=== PATIENT | male | born 1955 | race Two or more races ===

== ENCOUNTER 2024-01-26 20:16 | Inpatient (IN) | payer MEDICARE, MEDICAID ==
[~2024-01-26] VITALS: Ht 190.5 cm; Wt 176.7 kg
[2024-01-26 22:08] LABS: Basophils # (auto) 0 10 ^3/uL (0-0.2); Basophils % (auto) 0.3 % (0.0-2.0); Eosinophils # (auto) 0.3 10 ^3/uL (0-0.8); Eosinophils % (auto) 4.3 % (0.0-7.0); Hematocrit 38.6 % (41.0-53.0); Hemoglobin 13.2 g/dL (13.5-17.5); Mean Corpuscular Hemoglobin 33.6 pg (28.0-32.0); Mean Corpuscular Hgb Conc. 34.3 g/dL (32.0-36.0); Monocytes # (auto) 0.6 10 ^3/uL (0-1.3); Monocytes % (auto) 9.4 % (0.0-12.0); Neutrophils # (auto) 3.6 10 ^3/uL (1.6-8.6); Nucleated Red Blood Cells % 0.1 %; Platelet Count (auto) 145 10^3/uL (140-450); Red Blood Cells 3.94 10^6/uL (4.5-5.90); Red Cell Distribution Width 14.4 % (11.8-14.3); White Blood Cell 6.5 10^3/uL (4.4-10.8)
[2024-01-26 22:30] LABS: Alanine Aminotransferase 20 U/L (7-40); Alkaline Phosphatase 92 U/L (46-116); Anion Gap 8 (5-15); Aspartate Aminotransferase 42 U/L (13-40); BUN/Creatinine Ratio 9.1 (10.0-20.0); Blood Urea Nitrogen 19 mg/dL (9-23); Calcium 9.5 mg/dL (8.7-10.4); Carbon Dioxide 23 mmol/L (20-31); Chloride 109 mmol/L (98-107); Glucose 131 mg/dL (74-106); Potassium 4.1 mmol/L (3.5-5.1); Sodium 140 mmol/L (136-145)
[2024-01-26 22:31] LABS: Bilirubin, Total 0.5 mg/dL (0.2-1.0)
--- NOTE | 2024-01-27 00:38 | DVH ---
CLINICAL HISTORY: abd pain TECHNIQUE: CT of the abdomen and pelvis was performed without intravenous contrast. This exam was per formed according to our departmental dose optimization program. Up-to-date CT equipment and radiation dose reduction techniques are utilized as appropriate. WID: COMPARISON: None FINDINGS: Lower Thorax: Linear bibasilar scarring or atelectasis. Normal-sized heart. 3-vessel calcified coron luís artery disease, up to severe in the left anterior descending artery. Liver and Biliary system: Nodular contour of the liver. The gallbladder is normal caliber. No definit e hepatic lesion. Small portosystemic collateral vessels. No biliary ductal dilatation Spleen: Mild splenomegaly. Adrenal Glands and Kidneys: Normal adrenal glands. There is no left hydronephrosis. Tiny nonobstruct ing left upper pole renal calculus. there is a 6 mm calculus in the distal right ureter causing mild- to-moderate upstream right hydroureteronephrosis. Small bilateral kidneys. Pancreas and Retroperitoneum: Unremarkable. Aorta and Major Vessels: Mild calcified plaque in the aortoiliac vessels. Mild focal ectasia of the i nfrarenal abdominal aorta. There is an IVC filter in place terminating below the level of the renal v eins. The legs of the IVC filter extend beyond the confines of the IVC Bowel, Mesentery and Peritoneal space: The right abdomen is not entirely included in the field of vie w. Normal caliber small and large bowel. There is no free air or loculated fluid collection Pelvis: Moderate distention of the urinary bladder. There is a diverticulum in the anterior dome of t he liver. Mild bladder wall trabeculation. TURP defect in the prostate gland. There is no pelvic lymp hadenopathy. Abdominal wall and Osseous Structures: Moderate fat containing bilateral inguinal hernias. Small fat containing umbilical hernia there is bony demineralization. 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 IMPRESSION: 1. There is a 6 mm calculus in the distal right ureter with [id number] right hydroureteronephro sis . 2. Tiny nonobstructing left upper pole renal calculus . 3. Moderately distended urinary bladder containing diverticulum in the anterior dome and bladder wall trabeculation which could be due to chronic bladder outlet obstruction or neurogenic bladder. Of not e there is a TURP defect in the prostate gland 4. Cirrhosis and portal hypertension with portosystemic collateral vessels and splenomegaly. 5. IVC filter terminating below the level of the renal veins; the legs of the IVC filter extend beyon d the confines of the IVC. 6. 3-vessel calcified coronary artery disease up to severe in the left anterior descending artery.
--- NOTE | 2024-01-27 00:59 | ED.PDOC ---
General HPI Comments 68-year-old male brought in by EMS. Patient brought in from skilled facility. Patient complaining of dysuria and strong odor in his urine for the last two days. States he had been having worsening back pain today. Reports a history of urinary tract infections. Chief Complaint: Urinary Time Seen by MD: 21:17 Reviewed notes: Nurses Notes Allergies: Coded Allergies: Iodine (Verified Allergy, Unknown, 01/26/24) Information Source: Patient Mode of Arrival: EMS Past Medical History PAST MEDICAL HISTORY: DM, HTN Constitutional: denies: chills, diaphoresis, fatigue, fever, malaise, sweats, weakness, others EENTM: denies: blurred vision, double vision, ear bleeding, ear discharge, ear drainage, ear pain, ear ringing, eye pain, eye redness, hearing loss, mouth pain, mouth swelling, nasal discharge, nose bleeding, nose congestion, nose pain, photophobia, tearing, throat pain, throat swelling, voice changes, others Respiratory: denies: cough, hemoptysis, orthopnea, SOB at rest, shortness of breath, SOB with excertion, stridor, wheezing, others Cardiovascular: denies: chest pain, dizzy spells, diaphoresis, Dyspnea on exertion, edema, irregular heart beat, left arm pain, lightheadedness, palpitations, PND, syncope, others Gastrointestinal: denies: abdomen distended, abdominal pain, blood streaked bowels, constipated, diarrhea, dysphagia, difficulty swallowing, hematemesis, melena, nausea, poor appetite, poor fluid intake, rectal bleeding, rectal pain, vomiting, others Genitourinary: reports: dysuria, flank pain; denies: burning, frequency, hematuria, incontinence, penile discharge, penile sore, pain, testicle pain, testicle swelling, urgency, others Neurological: denies: dizziness, fainting, headache, left sided numbness, left sided weakness, numbness, paresthesia, pre-existing deficit, right sided numbness, right sided weakness, seizure, speech problems, tingling, tremors, weakness, others Musculoskeletal: denies: back pain, gout, joint pain, joint swelling, muscle pain, muscle stiffness, neck pain, others Integumetry: denies: bruises, change in color, change in hair/nails, dryness, laceration, lesions, lumps, rash, wounds, others Allergic/Immunocompromised: denies: Difficulty Healing, Frequent Infections, Hives, Itching, others Physical Exam General Appearance: Mild Distress, Normal HEENT: Normal ENT Inspection, Pharynx Normal, TMs Normal Neck: Full Range of Motion, Non-Tender, Normal, Normal Inspection Respiratory: Chest Non-Tender, Lungs Clear, No Accessory Muscle Use, No Respiratory Distress, Normal Breath Sounds Cardiovascular: No Edema, No JVD, No Murmur, No Gallop, Normal Peripheral Pulses, Regular Rate/Rhythm Breast Exam: Deferred Gastrointestinal: No Organomegaly, Non Tender, No Pulsatile Mass, Normal Bowel Sounds, Soft Genitalia: Deferred Pelvic: Deferred Rectal: Deferred Extremities: No calf tenderness, Normal capillary refill, No pedal edema Musculoskeletal : Apperance: Normal Neurologic: Alert, administration vice president II-XII nml as Tested, No Motor Deficits, Normal Affect, Normal Mood, No Sensory Deficits Cerebellar Function: Normal Reflexes: Normal Skin: Dry, Normal Color, Warm Lymphatic: No Adenopathy Was a procedure done? Was a procedure done?: No Differential Diagnosis Kidney stone (Female): N/A Kidney stone (Male): Pancreatitis, Pyelonephritis, Renal failure, Strain, Urinary obstruction, Urinary tract infection X-Ray, Labs, Meds, VS Vital Signs Date Time Temp Pulse Resp B/P (MAP) Pulse Ox O2 Delivery O2 Flow Rate FiO2 01/26/24 20:41 97.2 78 20 120/72 (88) 93 Lab Test 01/26/24 22:00 Range/Units White Blood Count 6.5 4.4-10.8 10^3/uL Red Blood Count 3.94 L 4.5-5.90 10^6/uL Hemoglobin 13.2 L 13.5-17.5 g/dL Hematocrit 38.6 L 41.0-53.0 % Mean Corpuscular Volume 98.0 80.0-100.0 fL Mean Corpuscular Hemoglobin 33.6 H 28.0-32.0 pg Mean Corpuscular Hemoglobin Concent 34.3 32.0-36.0 g/dL Red Cell Distribution Width 14.4 H 11.8-14.3 % Platelet Count 145 140-450 10^3/uL Mean Platelet Volume 7.4 6.9-10.8 fL Neutrophils (%) (Auto) 56.0 37.0-80.0 % Lymphocytes (%) (Auto) 30.0 10.0-50.0 % Monocytes (%) (Auto) 9.4 0.0-12.0 % Eosinophils (%) (Auto) 4.3 0.0-7.0 % Basophils (%) (Auto) 0.3 0.0-2.0 % Neutrophils # (Auto) 3.6 1.6-8.6 10 ^3/uL Lymphocytes # (Auto) 2.0 0.4-5.4 10 ^3/uL Monocytes # (Auto) 0.6 0-1.3 10 ^3/uL Eosinophils # (Auto) 0.3 0-0.8 10 ^3/uL Basophils # (Auto) 0 0-0.2 10 ^3/uL Nucleated Red Blood Cells 0.1 % Sodium Level 140 136-145 mmol/L Potassium Level 4.1 3.5-5.1 mmol/L Chloride Level 109 H 98-107 mmol/L Carbon Dioxide Level 23 20-31 mmol/L Anion Gap 8 5-15 Blood Urea Nitrogen 19 9-23 mg/dL Creatinine 2.08 H 0.700-1.30 mg/dL Glomerular Filtration Rate Calc 34 >90 mL/min BUN/Creatinine Ratio 9.1 L 10.0-20.0 Serum Glucose 131 H 74-106 mg/dL Lactic Acid Level 1.7 0.4-2.0 mmol/L Calcium Level 9.5 8.7-10.4 mg/dL Total Bilirubin 0.5 0.2-1.0 mg/dL Aspartate Amino Transferase (AST) 42 H 13-40 U/L Alanine Aminotransferase (ALT) 20 7-40 U/L Alkaline Phosphatase 92 46-116 U/L Total Protein 8.0 5.7-8.2 g/dL Albumin 4.0 3.2-4.8 g/dL X-Ray, Labs, Meds, VS Comment Patient to be admitted for urinary tract infection, renal calculi with hydronephrosis Patient will be started on Rocephin IV Ramos catheter to be placed Time of 1ST Reevaluation: 00:58 Reevaluation 1ST: Unchanged Patient Education/Counseling: Diagnosis, Treatment Family Education/Counseling: Diagnosis, Treatment Departure 1 Departure Time of Disposition: 00:57 Impression: Primary Impression: Hydroureteronephrosis Additional Impressions: Kidney stone Urinary tract infection Qualified Codes: N30.00 - Acute cystitis without hematuria Disposition: ADMITTED INPATIENT Condition: Fair Discharged With: Self Critical Care Note Critical Care Time?: No Stability Stability form required: No Heart Score Heart Score: Heart Score Response (Comments) Value History N/A 0 EKG N/A 0 Age N/A 0 Risk Factors N/A 0 Troponin N/A 0 Total 0 SHARRON MCCLELLAND Jan 27, 2024 00:59
[2024-01-27] MEDS ORDERED: ONDANSETRON HCL 4 MG/2 ML VIAL IV PRN (04:15)
--- NOTE | 2024-01-27 06:21 | DVHHP2 ---
History of Present Illness Reason for Visit: Urinary complaints History of Present Illness 68-year-old male presents from a senior care facility for evaluation of urinary complaints. Patient has been complaining of strong order from the urine and dysuria for the past three days. Occasional chills. No fever. No abdominal pain. No other acute complaints. Past Medical History Hypertension diabetes mellitus Past Surgical History None Family History Noncontributory Smoke: No ALCOHOL: none Drugs: None Lives: [facility] Review of Systems Review of Systems Review of systems are currently negative otherwise addressed in HPI. Allergies: Coded Allergies: Iodine (Verified Allergy, Unknown, 01/26/24) Medications Current Medications Medications Dose Ordered Sig/Garrett Route Start Time Stop Time Status Last Admin Dose Admin Metoprolol Tartrate 25 mg BID PO 01/27/24 10:00 Furosemide 40 mg DAILY PO 01/27/24 10:00 Atorvastatin Calcium 40 mg HS PO 01/27/24 22:00 Tamsulosin HCl 0.4 mg QPM PO 01/27/24 18:00 Warfarin Sodium RX PROTOCOL PER PHARMACY PO 01/27/24 04:15 UNV Quetiapine Fumarate 25 mg BID PO 01/27/24 10:00 Acetaminophen/ Hydrocodone Bitart 1 tab Q4HP PRN PO 01/27/24 04:15 Ondansetron HCl 4 mg Q4HP PRN IV 01/27/24 04:15 Acetaminophen 650 mg Q6HP PRN PO 01/27/24 04:15 Exam Vital Signs Vital Signs Date Time Temp Pulse Resp B/P (MAP) Pulse Ox O2 Delivery O2 Flow Rate FiO2 01/26/24 20:41 97.2 78 20 120/72 (88) 93 Exam Gen: 68-year-old male in mild distress, morbidly obese Skin: Warm, dry, normal color and texture, no rash. HEENT: Normocephalic atraumatic, mucous membranes moist and pink. Neck: Cervical and supraclavicular nodes normal without enlargement, trachea is midline, thyroid gland is normal without masses. Pulmonary: Clear to auscultation and percussion bilaterally. Cardiac: Regular rate and rhythm. No murmur Abdomen: Soft, nontender, nondistended, bowel sounds present all 4 quadrants, no guarding, no rigidity, no organomegaly. Extremities: No cyanosis, clubbing, no edema Neuro: Cranial nerves II through XII grossly intact, normal affect and speech, no focal motor deficits. Labs/Xrays ORDERING PHYSICIAN: SHARRON MCCLELLAND PROCEDURE(s): ABPL - CT AB PEL WO CON-NO ORAL OR IV REASON: abd pain ORDER NUMBER(s): [id number], ACCESSION NUMBER(s): [id number] CLINICAL HISTORY: abd pain TECHNIQUE: CT of the abdomen and pelvis was performed without intravenous contrast. This exam was performed according to our departmental dose optimization program. Up-to-date CT equipment and radiation dose reduction techniques are utilized as appropriate. WID: COMPARISON: None FINDINGS: Lower Thorax: Linear bibasilar scarring or atelectasis. Normal-sized heart. 3-vessel calcified coronary artery disease, up to severe in the left anterior descending artery. Liver and Biliary system: Nodular contour of the liver. The gallbladder is normal caliber. No definite hepatic lesion. Small portosystemic collateral vessels. No biliary ductal dilatation Spleen: Mild splenomegaly. Adrenal Glands and Kidneys: Normal adrenal glands. There is no left hydron ephrosis. Tiny nonobstructing left upper pole renal calculus. there is a 6 mm calculus in the distal right ureter causing [id number] upstream right hydroureteronephrosis. Small bilateral kidneys. Pancreas and Retroperitoneum: Unremarkable. Aorta and Major Vessels: Mild calcified plaque in the aortoiliac vessels. Mild focal ectasia of the infrarenal abdominal aorta. There is an IVC filter in place terminating below the level of the renal veins. The legs of the IVC filter extend beyond the confines of the IVC Bowel, Mesentery and Peritoneal space: The right abdomen is not entirely included in the field of view. Normal caliber small and large bowel. There is no free air or loculated fluid collection Pelvis: Moderate distention of the urinary bladder. There is a diverticulum in the anterior dome of the liver. Mild bladder wall trabeculation. TURP defect in the prostate gland. There is no pelvic lymphadenopathy. Abdominal wall and Osseous Structures: Moderate fat containing bilateral inguinal hernias. Small fat containing umbilical hernia there is bony demineralization. 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 IMPRESSION: 1. There is a 6 mm calculus in the distal right ureter with [id number] right hydroureteronephrosis . 2. Tiny nonobstructing left upper pole renal calculus . 3. Moderately distended urinary bladder containing diverticulum in the anterior dome and bladder wall trabeculation which could be due to chronic bladder outlet obstruction or neurogenic bladder. Of note there is a TURP defect in the prostate gland 4. Cirrhosis and portal hypertension with portosystemic collateral vessels and splenomegaly. 5. IVC filter terminating below the level of the renal veins; the legs of the IVC filter extend beyond the confines of the IVC. 6. 3-vessel calcified coronary artery disease up to severe in the left anterior descending artery. ATED BY: MOHAN KOO MD Labs Test 01/26/24 22:00 Range/Units White Blood Count 6.5 4.4-10.8 10^3/uL Red Blood Count 3.94 L 4.5-5.90 10^6/uL Hemoglobin 13.2 L 13.5-17.5 g/dL Hematocrit 38.6 L 41.0-53.0 % Mean Corpuscular Volume 98.0 80.0-100.0 fL Mean Corpuscular Hemoglobin 33.6 H 28.0-32.0 pg Mean Corpuscular Hemoglobin Concent 34.3 32.0-36.0 g/dL Red Cell Distribution Width 14.4 H 11.8-14.3 % Platelet Count 145 140-450 10^3/uL Mean Platelet Volume 7.4 6.9-10.8 fL Neutrophils (%) (Auto) 56.0 37.0-80.0 % Lymphocytes (%) (Auto) 30.0 10.0-50.0 % Monocytes (%) (Auto) 9.4 0.0-12.0 % Eosinophils (%) (Auto) 4.3 0.0-7.0 % Basophils (%) (Auto) 0.3 0.0-2.0 % Neutrophils # (Auto) 3.6 1.6-8.6 10 ^3/uL Lymphocytes # (Auto) 2.0 0.4-5.4 10 ^3/uL Monocytes # (Auto) 0.6 0-1.3 10 ^3/uL Eosinophils # (Auto) 0.3 0-0.8 10 ^3/uL Basophils # (Auto) 0 0-0.2 10 ^3/uL Nucleated Red Blood Cells 0.1 % Sodium Level 140 136-145 mmol/L Potassium Level 4.1 3.5-5.1 mmol/L Chloride Level 109 H 98-107 mmol/L Carbon Dioxide Level 23 20-31 mmol/L Anion Gap 8 5-15 Blood Urea Nitrogen 19 9-23 mg/dL Creatinine 2.08 H 0.700-1.30 mg/dL Glomerular Filtration Rate Calc 34 >90 mL/min BUN/Creatinine Ratio 9.1 L 10.0-20.0 Serum Glucose 131 H 74-106 mg/dL Lactic Acid Level 1.7 0.4-2.0 mmol/L Calcium Level 9.5 8.7-10.4 mg/dL Total Bilirubin 0.5 0.2-1.0 mg/dL Aspartate Amino Transferase (AST) 42 H 13-40 U/L Alanine Aminotransferase (ALT) 20 7-40 U/L Alkaline Phosphatase 92 46-116 U/L Total Protein 8.0 5.7-8.2 g/dL Albumin 4.0 3.2-4.8 g/dL Assessment/Plan Assessment/Plan Assessment Obstructive uropathy Right hydroureter nephrosis Urinary retention Diabetes mellitus Hypertension Possible UTI Acute kidney injury Secondary coagulopathy Plan Admit the patient to [facility] to the hospitalist Urology consultation Tyorne ZUNIGA pending Resume home medications Continue treatment per orders. Plan discussed with: Patient My Orders Orders - MARGRET GARCIA AGACNBethany Procedure Category Date Status Time * Urology Consult CONS 01/27/24 Transmitted 04:01 Metoprolol Tartrate PHA 01/27/24 In Process Tablet (Lopressor Ta 10:00 Furosemide Tablet PHA 01/27/24 In Process (Lasix Tablet) 10:00 Atorvastatin (Lipitor) PHA 01/27/24 In Process 22:00 Tamsulosin PHA 01/27/24 In Process Hydrochloride (Flomax) 18:00 Warfarin Per Rx PHA 01/27/24 Pending Protocol (Coumadin 04:15 Quetiapine Fumarate PHA 01/27/24 In Process Tablet (Seroquel Tab 10:00 Basic Metabolic Panel LAB 01/28/24 Verified 04:00 Admit ADMIT 01/27/24 Transmitted 04:01 Hydrocodone-Acet PHA 01/27/24 In Process 5/325mg Tab ([place] 04:15 Ondansetron Hcl PHA 01/27/24 In Process (Zofran) 04:15 Complete Blood Count LAB 01/28/24 Verified 04:00 Cardiac DIET 01/27/24 Transmitted Diet-2gna,Lofat,Lochol Breakfast Condition: Stable ANA 01/27/24 In Process 04:01 Acetaminophen Tablet PHA 01/27/24 In Process (Tylenol Tablet) 04:15 Bedrest With Bathroom ANA 01/27/24 In Process Privileg 04:01 PTPTT LAB 01/27/24 Transmitted 06:18 Ceftriaxone Ivpb PHA 01/27/24 Verified Rocephin 09:00 Date of Service: Jan 27, 2024 Billing Provider: MARGRET GARCIA Common Visit Codes: [id number] INP/OBS CARE (HIGH) MARGRET GARCIA Jan 27, 2024 06:21
[2024-01-27] MEDS: cefTRIAXone 1GM/50ML D5W 50 ML IV ONE (07:00)
[2024-01-27 07:08] LABS: INR 1.12 (0.9-1.15); Partial Thromboplastin Time 29.6 SEC (24.5-34.5); Prothrombin Time 11.8 sec (9.3-11.8)
[2024-01-27 07:30] VITALS: PULSE 75; RESP 20; O2SAT 96
[2024-01-27] MEDS: HYDROcodone-ACET 5/325MG TAB PO PRN (09:06)
[2024-01-27] MEDS: cefTRIAXone 1GM/50ML D5W 50 ML IV SCH (09:11)
[2024-01-27] MEDS: LIDOCAINE 2% JELLY 11ml (GLYDO) UR ONE (10:00)
[2024-01-27] MEDS: QUEtiapine FUMARATE 25 MG TAB PO SCH (10:41)
[2024-01-27] MEDS: METOPROLOL TARTRATE 25 MG TAB PO SCH (10:41)
[2024-01-27] MEDS: FUROSEMIDE 40 MG TAB PO SCH (10:41)
[2024-01-27 12:00] VITALS: PULSE 85; RESP 19; O2SAT 93
--- NOTE | 2024-01-27 13:21 | DVHPN2 ---
Reviewed: Care Plan, H&P, Labs, Medications, Previous Orders, Radiology Changes from previous H/P or p: No Changes Objective Vitals Vital Signs Date Time Temp Pulse Resp B/P (MAP) Pulse Ox O2 Delivery O2 Flow Rate FiO2 01/27/24 11:00 98.1 79 18 110/60 (77) 96 98.1 01/27/24 07:30 Room Air* 0 21 Medications Current Medications Medications Dose Ordered Sig/Garrett Route Start Time Stop Time Status Last Admin Dose Admin Metoprolol Tartrate 25 mg BID PO 01/27/24 10:00 01/27/24 10:41 25 MG Furosemide 40 mg DAILY PO 01/27/24 10:00 01/27/24 10:41 40 MG Atorvastatin Calcium 40 mg HS PO 01/27/24 22:00 Tamsulosin HCl 0.4 mg QPM PO 01/27/24 18:00 Warfarin Sodium RX PROTOCOL PER PHARMACY PO 01/27/24 04:15 Quetiapine Fumarate 25 mg BID PO 01/27/24 10:00 01/27/24 10:41 25 MG Acetaminophen/ Hydrocodone Bitart 1 tab Q4HP PRN PO 01/27/24 04:15 01/27/24 09:06 1 TAB Ondansetron HCl 4 mg Q4HP PRN IV 01/27/24 04:15 Acetaminophen 650 mg Q6HP PRN PO 01/27/24 04:15 Ceftriaxone Sodium 50 ml @ 100 mls/hr DAILY@09 IV 01/27/24 09:00 01/27/24 09:11 100 MLS/HR Laboratory Results Laboratory Tests 01/26/24 22:00 Chemistry Test 01/26/24 22:00 Albumin 4.0 g/dL (3.2-4.8) Calcium Level 9.5 mg/dL (8.7-10.4) Total Protein 8.0 g/dL (5.7-8.2) Coagulation Test 01/27/24 06:35 Prothrombin Time 11.8 sec (9.3-11.8) Prothrombin Time INR 1.12 (0.9-1.15) Activated Partial Thromboplast Time 29.6 SEC (24.5-34.5) LFT Test 01/26/24 22:00 Alanine Aminotransferase (ALT) 20 U/L (7-40) Alkaline Phosphatase 92 U/L (46-116) Aspartate Amino Transferase (AST) 42 U/L (13-40) H Total Bilirubin 0.5 mg/dL (0.2-1.0) Labs and/or images reviewed: Labs reviewed by me, Image(s) reviewed by me Assessment/Plan Assessment/Plan Acute right flank pain 6 mm distal ureteral stone: Consult for Urology Hypertension Diabetes Cirrhosis of liver History of IVC filter [facility] Plan discussed with: Patient Date of Service: Jan 27, 2024 Billing Provider: TONEY GARDNER MD Common Visit Codes: [id number] INP/OBS CARE(HIGH) TONEY GARDNER MD Jan 27, 2024 13:20
[2024-01-27 16:45] LABS: Urine Bacteria FEW /hpf (None Seen); Urine Blood Negative /uL (Negative); Urine Clarity Clear (Clear); Urine Color Yellow (Yellow); Urine Mucus FEW (None Seen); Urine Protein, UAD 3+ (Negative); Urine Specific Gravity 1.019 (1.001-1.035); Urine Urobilinogen Normal (Negative); Urine WBC 1 /hpf (0 - 3)
--- NOTE | 2024-01-27 16:59 | DVHINCON2 ---
Allergies: Coded Allergies: Iodine (Verified Allergy, Unknown, 01/26/24) Current Medications Current Medications Medications (Trade) Dose Ordered Sig/Garrett Route PRN Reason Start Time Stop Time Status Last Admin Metoprolol Tartrate (Lopressor Tablet) 25 mg BID PO 01/27/24 10:00 01/27/24 10:41 Furosemide (Lasix Tablet) 40 mg DAILY PO 01/27/24 10:00 01/27/24 10:41 Atorvastatin Calcium (Lipitor) 40 mg HS PO 01/27/24 22:00 Tamsulosin HCl (Flomax) 0.4 mg QPM PO 01/27/24 18:00 Warfarin Sodium (Coumadin Per Rx Protocol) RX PROTOCOL PER PHARMACY PO 01/27/24 04:15 Quetiapine Fumarate (SEROquel TABLET) 25 mg BID PO 01/27/24 10:00 01/27/24 10:41 Acetaminophen/ Hydrocodone Bitart ([place] 5/325MG Tab) 1 tab Q4HP PRN PO MODERATE PAIN (4-6 PAIN SCALE) 01/27/24 04:15 01/27/24 09:06 Ondansetron HCl (Zofran) 4 mg Q4HP PRN IV NAUSEA / VOMITING 01/27/24 04:15 Acetaminophen (Tylenol Tablet) 650 mg Q6HP PRN PO PAIN SCALE 1-3 OR TEMP>100.4 01/27/24 04:15 Ceftriaxone Sodium 50 ml @ 100 mls/hr DAILY@09 IV 01/27/24 09:00 01/27/24 09:11 Vital Signs Vital Signs Date Time Temp Pulse Resp B/P (MAP) Pulse Ox O2 Delivery O2 Flow Rate FiO2 01/27/24 13:15 98.2 80 110/76 (87) 98.2 01/27/24 13:00 21 95 01/27/24 12:00 Room Air* 0 21 Labs/Diagnostic Data Labs Test 01/27/24 16:12 01/27/24 06:35 01/26/24 22:00 Range/Units Urine Color Yellow Yellow Urine Clarity Clear Clear Urine pH 6.0 5.0-9.0 Urine Specific [place] 1.019 1.001-1.035 Urine Protein 3+ H Negative Urine Ketones Negative Negative Urine Blood Negative Negative /uL Urine Nitrite Negative Negative Urine Bilirubin Negative Negative Urine Urobilinogen Normal Negative mg/dL Urine Leukocyte Esterase Negative Negative /uL Urine RBC 2 0 - 3 /hpf Urine WBC 1 0 - 3 /hpf Urine Squamous Epithelial Cells Few <5 /hpf Urine Bacteria Few H None Seen /hpf Urine Mucus Few None Seen Urine Glucose 2+ H Normal mg/dL Prothrombin Time 11.8 9.3-11.8 sec Prothrombin Time INR 1.12 0.9-1.15 Activated Partial Thromboplast Time 29.6 24.5-34.5 SEC White Blood Count 6.5 4.4-10.8 10^3/uL Red Blood Count 3.94 L 4.5-5.90 10^6/uL Hemoglobin 13.2 L 13.5-17.5 g/dL Hematocrit 38.6 L 41.0-53.0 % Mean Corpuscular Volume 98.0 80.0-100.0 fL Mean Corpuscular Hemoglobin 33.6 H 28.0-32.0 pg Mean Corpuscular Hemoglobin Concent 34.3 32.0-36.0 g/dL Red Cell Distribution Width 14.4 H 11.8-14.3 % Platelet Count 145 140-450 10^3/uL Mean Platelet Volume 7.4 6.9-10.8 fL Neutrophils (%) (Auto) 56.0 37.0-80.0 % Lymphocytes (%) (Auto) 30.0 10.0-50.0 % Monocytes (%) (Auto) 9.4 0.0-12.0 % Eosinophils (%) (Auto) 4.3 0.0-7.0 % Basophils (%) (Auto) 0.3 0.0-2.0 % Neutrophils # (Auto) 3.6 1.6-8.6 10 ^3/uL Lymphocytes # (Auto) 2.0 0.4-5.4 10 ^3/uL Monocytes # (Auto) 0.6 0-1.3 10 ^3/uL Eosinophils # (Auto) 0.3 0-0.8 10 ^3/uL Basophils # (Auto) 0 0-0.2 10 ^3/uL Nucleated Red Blood Cells 0.1 % Sodium Level 140 136-145 mmol/L Potassium Level 4.1 3.5-5.1 mmol/L Chloride Level 109 H 98-107 mmol/L Carbon Dioxide Level 23 20-31 mmol/L Anion Gap 8 5-15 Blood Urea Nitrogen 19 9-23 mg/dL Creatinine 2.08 H 0.700-1.30 mg/dL Glomerular Filtration Rate Calc 34 >90 mL/min BUN/Creatinine Ratio 9.1 L 10.0-20.0 Serum Glucose 131 H 74-106 mg/dL Lactic Acid Level 1.7 0.4-2.0 mmol/L Calcium Level 9.5 8.7-10.4 mg/dL Total Bilirubin 0.5 0.2-1.0 mg/dL Aspartate Amino Transferase (AST) 42 H 13-40 U/L Alanine Aminotransferase (ALT) 20 7-40 U/L Alkaline Phosphatase 92 46-116 U/L Total Protein 8.0 5.7-8.2 g/dL Albumin 4.0 3.2-4.8 g/dL PATIENT: EVELINE LOUISE ACCT: [id number] UNIT: [id number] : 1955 LOC: ER ROOM / BED: / AGE / SEX: 68 / M ADM STATUS: REG ER SERVICE 30 ORDERING PHYSICIAN: SHARRON MCCLELLAND PROCEDURE(s): ABPL - CT AB PEL WO CON-NO ORAL OR IV REASON: abd pain ORDER NUMBER(s): [id number], ACCESSION NUMBER(s): [id number] CLINICAL HISTORY: abd pain TECHNIQUE: CT of the abdomen and pelvis was performed without intravenous contrast. This exam was performed according to our departmental dose optimization program. Up-to-date CT equipment and radiation dose reduction techniques are utilized as appropriate. WID: COMPARISON: None FINDINGS: Lower Thorax: Linear bibasilar scarring or atelectasis. Normal-sized heart. 3- vessel calcified coronary artery disease, up to severe in the left anterior descending artery. Liver and Biliary system: Nodular contour of the liver. The gallbladder is normal caliber. No definite hepatic lesion. Small portosystemic collateral vessels. No biliary ductal dilatation Spleen: Mild splenomegaly. Adrenal Glands and Kidneys: Normal adrenal glands. There is no left hydronephrosis. Tiny nonobstructing left upper pole renal calculus. there is a 6 mm calculus in the distal right ureter causing [id number] upstream right hydroureteronephrosis. Small bilateral kidneys. Pancreas and Retroperitoneum: Unremarkable. Aorta and Major Vessels: Mild calcified plaque in the aortoiliac vessels. Mild focal ectasia of the infrarenal abdominal aorta. There is an IVC filter in place terminating below the level of the renal veins. The legs of the IVC filter extend beyond the confines of the IVC Bowel, Mesentery and Peritoneal space: The right abdomen is not entirely included in the field of view. Normal caliber small and large bowel. There is no free air or loculated fluid collection Pelvis: Moderate distention of the urinary bladder. There is a diverticulum in the anterior dome of the liver. Mild bladder wall trabeculation. TURP defect in the prostate gland. There is no pelvic lymphadenopathy. Abdominal wall and Osseous Structures: Moderate fat containing bilateral inguinal hernias. Small fat containing umbilical hernia there is bony demineralization. 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 IMPRESSION: 1. There is a 6 mm calculus in the distal right ureter with [id number] right hydroureteronephrosis . 2. Tiny nonobstructing left upper pole renal calculus . 3. Moderately distended urinary bladder containing diverticulum in the anterior dome and bladder wall trabeculation which could be due to chronic bladder outlet obstruction or neurogenic bladder. Of note there is a TURP defect in the prostate gland 4. Cirrhosis and portal hypertension with portosystemic collateral vessels and splenomegaly. 5. IVC filter terminating below the level of the renal veins; the legs of the IVC filter extend beyond the confines of the IVC. 6. 3-vessel calcified coronary artery disease up to severe in the left anterior descending artery. ATED BY: MOHAN KOO MD DICTATED DATE/TIME: 01/27/2435 SIGNED BY: MOHAN KOO MD SIGNED DATE/TIME: 01/27/2435 CC: Assessment 6 mm obstructing right distal ureteral calculus with moderate right hydronephrosis Urinary retention Plan/Recommendation Ramos catheter to gravity drainage Right percutaneous nephrostomy tube placement per Interventional Radiology Hold Coumadin INR is still normal ALLYN GRIDER MD Jan 27, 2024 16:59
[2024-01-27] MEDS ORDERED: WARFARIN SODIUM 5 MG TAB PO ONE (17:00)
[2024-01-27] MEDS: MANNITOL FTV 25% 12.5 GM/50 ML 50 ML IV ONE (17:55)
[2024-01-27 19:37] LABS: INR 1.14 (0.9-1.15)
[2024-01-27 20:00] VITALS: PULSE 93; RESP 11; O2SAT 97
[2024-01-27] MEDS: TAMSULOSIN HYDROCHLORIDE 0.4 MG CAP PO SCH (21:19)
[2024-01-27] MEDS: ATORVASTATIN 20 MG TAB PO SCH (22:20)
[2024-01-28 00:42] VITALS: PULSE 78; PULSE 82; RESP 20
[2024-01-28 05:00] VITALS: BP 101/61; PULSE 68; RESP 17; TEMP 98.2; O2SAT 99
[2024-01-28 06:35] LABS: Basophils # (auto) 0 10 ^3/uL (0-0.2); Basophils % (auto) 0.1 % (0.0-2.0); Eosinophils # (auto) 0.3 10 ^3/uL (0-0.8); Eosinophils % (auto) 5.6 % (0.0-7.0); Hematocrit 37.6 % (41.0-53.0); Hemoglobin 12.8 g/dL (13.5-17.5); Lymphocytes # (auto) 1.3 10 ^3/uL (0.4-5.4); Lymphocytes % (auto) 23.7 % (10.0-50.0); Mean Corpuscular Hemoglobin 33.2 pg (28.0-32.0); Mean Corpuscular Volume 97.7 fL (80.0-100.0); Monocytes # (auto) 0.5 10 ^3/uL (0-1.3); Monocytes % (auto) 8.5 % (0.0-12.0); Neutrophils # (auto) 3.5 10 ^3/uL (1.6-8.6); Neutrophils % (auto) 62.1 % (37.0-80.0); Nucleated Red Blood Cells % 0.1 %; Platelet Count (auto) 162 10^3/uL (140-450); Red Blood Cells 3.84 10^6/uL (4.5-5.90); Red Cell Distribution Width 14.4 % (11.8-14.3); White Blood Cell 5.6 10^3/uL (4.4-10.8)
[2024-01-28 06:37] LABS: Chloride 104 mmol/L (98-107); Potassium 3.9 mmol/L (3.5-5.1); Sodium 137 mmol/L (136-145)
[2024-01-28 06:38] LABS: Anion Gap 8 (5-15); Calcium 9.5 mg/dL (8.7-10.4); Carbon Dioxide 25 mmol/L (20-31)
[2024-01-28 06:43] LABS: BUN/Creatinine Ratio 10.2 (10.0-20.0); Blood Urea Nitrogen 21 mg/dL (9-23); Glucose 103 mg/dL (74-106)
[2024-01-28 08:49] VITALS: BP 125/83; PULSE 78; RESP 17; TEMP 98.7; O2SAT 93
--- NOTE | 2024-01-28 11:21 | DVHPN2 ---
Reviewed: Care Plan, H&P, Labs, Medications, Previous Orders, Radiology Changes from previous H/P or p: No Changes Objective Vitals Vital Signs Date Time Temp Pulse Resp B/P (MAP) Pulse Ox O2 Delivery O2 Flow Rate FiO2 01/28/24 10:27 125/83 01/28/24 10:21 78 01/28/24 08:49 98.7 17 93 98.7 01/28/24 00:42 Nasal Cannula* 2 28 Intake/Output Intake and Output 01/28/24 07:00 Intake Total 500 ml Output Total 1640 ml Balance -1140 ml Intake Oral 450 ml IV Total 50 ml Output Urine Total 1640 ml # Voids 2 # Bowel Movements 1 Medications Current Medications Medications Dose Ordered Sig/Garrett Route Start Time Stop Time Status Last Admin Dose Admin Metoprolol Tartrate 25 mg BID PO 01/27/24 10:00 01/28/24 10:21 25 MG Furosemide 40 mg DAILY PO 01/27/24 10:00 01/28/24 10:27 40 MG Atorvastatin Calcium 40 mg HS PO 01/27/24 22:00 01/27/24 22:20 40 MG Tamsulosin HCl 0.4 mg QPM PO 01/27/24 18:00 01/27/24 21:19 0.4 MG Quetiapine Fumarate 25 mg BID PO 01/27/24 10:00 01/28/24 10:20 25 MG Acetaminophen/ Hydrocodone Bitart 1 tab Q4HP PRN PO 01/27/24 04:15 01/27/24 09:06 1 TAB Ondansetron HCl 4 mg Q4HP PRN IV 01/27/24 04:15 Acetaminophen 650 mg Q6HP PRN PO 01/27/24 04:15 Ceftriaxone Sodium 50 ml @ 100 mls/hr DAILY@09 IV 01/27/24 09:00 01/28/24 10:15 100 MLS/HR Laboratory Results Laboratory Tests 01/28/24 05:32 Chemistry Test 01/28/24 05:32 Calcium Level 9.5 mg/dL (8.7-10.4) Coagulation Test 01/27/24 17:50 Prothrombin Time 12.0 sec (9.3-11.8) H Prothrombin Time INR 1.14 (0.9-1.15) Urinalysis Test 01/27/24 16:12 Urine Color Yellow (Yellow) Urine Clarity Clear (Clear) Urine pH 6.0 (5.0-9.0) Urine Specific [place] 1.019 (1.001-1.035) Urine Protein 3+ (Negative) H Urine Ketones Negative (Negative) Urine Blood Negative /uL (Negative) Urine Nitrite Negative (Negative) Urine Bilirubin Negative (Negative) Urine Urobilinogen Normal mg/dL (Negative) Urine Leukocyte Esterase Negative /uL (Negative) Urine RBC 2 /hpf (0 - 3) Urine WBC 1 /hpf (0 - 3) Urine Squamous Epithelial Cells Few /hpf (<5) Urine Bacteria Few /hpf (None Seen) H Urine Mucus Few (None Seen) Urine Glucose 2+ mg/dL (Normal) H Labs and/or images reviewed: Labs reviewed by me, Image(s) reviewed by me Assessment/Plan Assessment/Plan Acute right flank pain 6 mm obstructing right distal ureteral stone with moderate right hydronephrosis: Consult for Urology appreciated awaiting right nephrostomy tube placement Hypertension: Metoprolol Hypercholesterolemia: Lipitor BPH: Flomax Charcot foot right foot Decubitus ulcer lateral right ankle present on admission: Wound consult Depression: Seroquel, Prozac Chronic constipation: Lactulose senekot History of coronary artery disease status post stents 2012 Acute on chronic congestive heart failure: Lasix echocardiogram cardiology consult Type 2 Diabetes: insulin sliding scale Possible history of stroke in the past Bed-bound for the last three years Gross obesity BMI of 50 Cirrhosis of liver History of IVC filter Patient came from [facility] assisted living facility Time spent 70 minutes Advanced care planning 20 minutes Patient is full code Plan discussed with: Patient My Orders Orders - TONEY GARDNER MD Procedure Category Date Status Time * Wound Consult CONS 01/28/24 Transmitted * [facility] CONS 01/28/24 Transmitted Consult Date of Service: Jan 28, 2024 Billing Provider: TONEY GARDNER MD Common Visit Codes: [id number] CARE 30-74 MIN TONEY GARDNER MD Jan 28, 2024 11:21
[2024-01-28 13:00] VITALS: BP 108/67; PULSE 60; RESP 17; TEMP 99.1; O2SAT 94
[2024-01-28] MEDS ORDERED: IODIXANOL 320MG/ML 100ML BTL IV ONE (13:10)
[2024-01-28] MEDS ORDERED: ATOR40TA52 PO (15:01)
[2024-01-28] MEDS ORDERED: TAMS0.4C39 PO (15:01)
[2024-01-28] MEDS ORDERED: FAMO-12 PO (15:01)
[2024-01-28] MEDS ORDERED: WARF-113 PO (15:01)
[2024-01-28] MEDS ORDERED: FURO40TA4 PO (15:01)
[2024-01-28] MEDS ORDERED: ASCO500T6 PO (15:01)
[2024-01-28] MEDS ORDERED: QUET1TAB11 PO (15:01)
[2024-01-28] MEDS ORDERED: FOLI-119 PO (15:01)
[2024-01-28] MEDS ORDERED: MET25T PO (15:01)
[2024-01-28] MEDS ORDERED: ASPI81CH74 PO (15:01)
[2024-01-28] MEDS ORDERED: QUET300T24 PO (15:01)
[2024-01-28 16:53] VITALS: BP 60/26; PULSE 86; RESP 17; TEMP 98.3; O2SAT 96
--- NOTE | 2024-01-28 19:03 | DVHINCON2 ---
Date of service: Jan 28, 2024 History of Present Illness 68-year-old male presents [facility] a [facility] for evaluation of urinary complaints. Patient has been complaining of strong order from the urine and dysuria for the past three days. Occasional chills. No fever. No abdominal pain. No other acute complaints. Past Medical History Hypertension diabetes mellitus Past Surgical History None Family History Noncontributory Smoke: No ALCOHOL: none Drugs: None Lives: [facility] Past Medical History reviewed Family History: FH: chronic renal disease G8 FATHER Allergies: Coded Allergies: Iodine (Verified Allergy, Unknown, 01/26/24) Home Meds Reported Medications Warfarin Sodium (Warfarin Sodium) 6 Mg Tab, PO UD, MG 01/28/24 Ascorbic Acid (Gnp Vitamin C W/[place] Hips) 500 Mg Tab, 500 MG PO BID, TAB 01/28/24 Aspirin (Aspirin 81 Low Dose) 81 Mg Chw, 81 MG PO DAILY, TAB.CHEW 01/28/24 Quetiapine Fumerate (QUETIAPINE FUMARATE) 300 Mg Tab, 300 MG PO HS PRN for FOR INSOMNIA, MG 01/28/24 Folic Acid (Folic Acid) 1 Mg Tab, 1 MG PO DAILY, MG 01/28/24 Quetiapine Fumerate (QUETIAPINE FUMARATE) 25 Mg Tab, 25 MG PO BID, TAB 01/28/24 Tamsulosin Hcl (Tamsulosin Hcl) 0.4 Mg Cap, 0.4 MG PO QPM, MG 01/28/24 Famotidine (Famotidine) 20 Mg Tab, 20 MG PO BID, MG 01/28/24 Atorvastatin Calcium (ATORVASTATIN CALCIUM) 40 Mg Tab, 40 MG PO QPM, TAB 01/28/24 Furosemide (Furosemide) 40 Mg Tab, 40 MG PO DAILY 01/28/24 Metoprolol Tartrate (Lopressor) 25 Mg Tb, 25 MG PO Q12HR, TAB 01/28/24 Current Medications Current Medications Medications (Trade) Dose Ordered Sig/Garrett Route PRN Reason Start Time Stop Time Status Last Admin Atorvastatin Calcium (Lipitor) 40 mg HS PO 01/27/24 22:00 01/27/24 22:20 Fluoxetine HCl (PROzac CAPSULE) 40 mg QAM PO 01/29/24 07:00 Sennosides (Senokot Tablet) 8.6 mg HS PO 01/28/24 22:00 Lactulose 30 ml BIDPRN PRN PO FOR CONSTIPATION 01/28/24 11:45 Review of Systems 10 pt ros otherwise negative Vital Signs Vital Signs Date Time Temp Pulse Resp B/P (MAP) Pulse Ox O2 Delivery O2 Flow Rate FiO2 01/28/24 16:53 98.3 86 17 60/26 (37) 96 98.3 01/28/24 08:00 Room Air* 0 21 Physical Exam nad s1 s2 rrr ctab soft nt/nd no edema Labs/Diagnostic Data Labs Test 01/28/24 05:32 01/27/24 17:50 01/27/24 16:12 01/27/24 06:35 Range/Units White Blood Count 5.6 4.4-10.8 10^3/uL Red Blood Count 3.84 L 4.5-5.90 10^6/uL Hemoglobin 12.8 L 13.5-17.5 g/dL Hematocrit 37.6 L 41.0-53.0 % Mean Corpuscular Volume 97.7 80.0-100.0 fL Mean Corpuscular Hemoglobin 33.2 H 28.0-32.0 pg Mean Corpuscular Hemoglobin Concent 34.0 32.0-36.0 g/dL Red Cell Distribution Width 14.4 H 11.8-14.3 % Platelet Count 162 140-450 10^3/uL Mean Platelet Volume 7.6 6.9-10.8 fL Neutrophils (%) (Auto) 62.1 37.0-80.0 % Lymphocytes (%) (Auto) 23.7 10.0-50.0 % Monocytes (%) (Auto) 8.5 0.0-12.0 % Eosinophils (%) (Auto) 5.6 0.0-7.0 % Basophils (%) (Auto) 0.1 0.0-2.0 % Neutrophils # (Auto) 3.5 1.6-8.6 10 ^3/uL Lymphocytes # (Auto) 1.3 0.4-5.4 10 ^3/uL Monocytes # (Auto) 0.5 0-1.3 10 ^3/uL Eosinophils # (Auto) 0.3 0-0.8 10 ^3/uL Basophils # (Auto) 0 0-0.2 10 ^3/uL Nucleated Red Blood Cells 0.1 % Sodium Level 137 136-145 mmol/L Potassium Level 3.9 3.5-5.1 mmol/L Chloride Level 104 98-107 mmol/L Carbon Dioxide Level 25 20-31 mmol/L Anion Gap 8 5-15 Blood Urea Nitrogen 21 9-23 mg/dL Creatinine 2.06 H 0.700-1.30 mg/dL Glomerular Filtration Rate Calc 35 >90 mL/min BUN/Creatinine Ratio 10.2 10.0-20.0 Serum Glucose 103 74-106 mg/dL Calcium Level 9.5 8.7-10.4 mg/dL Prothrombin Time 12.0 H 9.3-11.8 sec Prothrombin Time INR 1.14 0.9-1.15 Urine Color Yellow Yellow Urine Clarity Clear Clear Urine pH 6.0 5.0-9.0 Urine Specific [place] 1.019 1.001-1.035 Urine Protein 3+ H Negative Urine Ketones Negative Negative Urine Blood Negative Negative /uL Urine Nitrite Negative Negative Urine Bilirubin Negative Negative Urine Urobilinogen Normal Negative mg/dL Urine Leukocyte Esterase Negative Negative /uL Urine RBC 2 0 - 3 /hpf Urine WBC 1 0 - 3 /hpf Urine Squamous Epithelial Cells Few <5 /hpf Urine Bacteria Few H None Seen /hpf Urine Mucus Few None Seen Urine Glucose 2+ H Normal mg/dL Activated Partial Thromboplast Time 29.6 24.5-34.5 SEC Test 01/26/24 22:00 Range/Units Lactic Acid Level 1.7 0.4-2.0 mmol/L Total Bilirubin 0.5 0.2-1.0 mg/dL Aspartate Amino Transferase (AST) 42 H 13-40 U/L Alanine Aminotransferase (ALT) 20 7-40 U/L Alkaline Phosphatase 92 46-116 U/L Total Protein 8.0 5.7-8.2 g/dL Albumin 4.0 3.2-4.8 g/dL Assessment hx of cad s/p pci coronary calcium preop eval kidney stone massive obesity bmi of 50 htn hl Plan/Recommendation pt refused neph tube today fu urology recs per RN and pt no surgical plan at this time check echo pt is terrible historian if surgery indicated, recommend stress mpi prior will follow Plan discussed with: Patient THORPE,SOHAM Sims MD Jan 28, 2024 19:03
[2024-01-28 21:00] VITALS: BP 97/57; PULSE 85; RESP 19; TEMP 97.6; O2SAT 96
[2024-01-28] MEDS: SENNA 8.6 MG TAB PO SCH (21:55)
[2024-01-29] VITALS (7 sets, daily range): BP systolic 104–124; BP diastolic 64–74; PULSE 53–89; RESP 14–21; TEMP 97.1–98.5; O2SAT 92–98
[2024-01-29] MEDS: FLUoxetine HCL 20 MG CAP PO SCH (06:05)
--- NOTE | 2024-01-29 08:44 | DVHPN2 ---
Progress Note Date Seen: Jan 29, 2024 Medical Necessity Reason Pt with a Central, PICC or Fol: No Subjective Patient reports: Feels better Other Systems: refused IR neph tube Objective vital signs Vital Sign Date Time Temp Pulse Resp B/P (MAP) Pulse Ox O2 Delivery O2 Flow Rate FiO2 01/29/24 05:00 98.2 74 20 120/70 (87) 94 98.2 01/28/24 20:00 Room Air* 0 21 Total Intake and Output 01/28/24 01/28/24 01/29/24 15:00 23:00 07:00 Intake Total 240 ml 400 ml Balance 240 ml 400 ml medications Current Medications Medications Dose Ordered Sig/Garrett Route Start Time Stop Time Status Last Admin Dose Admin Metoprolol Tartrate 25 mg BID PO 01/27/24 10:00 01/28/24 10:21 25 MG Furosemide 40 mg DAILY PO 01/27/24 10:00 01/28/24 10:27 40 MG Atorvastatin Calcium 40 mg HS PO 01/27/24 22:00 01/28/24 21:55 40 MG Tamsulosin HCl 0.4 mg QPM PO 01/27/24 18:00 01/28/24 18:22 0.4 MG Quetiapine Fumarate 25 mg BID PO 01/27/24 10:00 01/28/24 21:55 25 MG Acetaminophen/ Hydrocodone Bitart 1 tab Q4HP PRN PO 01/27/24 04:15 01/27/24 09:06 1 TAB Ondansetron HCl 4 mg Q4HP PRN IV 01/27/24 04:15 Acetaminophen 650 mg Q6HP PRN PO 01/27/24 04:15 Ceftriaxone Sodium 50 ml @ 100 mls/hr DAILY@09 IV 01/27/24 09:00 01/28/24 10:15 100 MLS/HR Fluoxetine HCl 40 mg QAM PO 01/29/24 07:00 01/29/24 06:05 40 MG Sennosides 8.6 mg HS PO 01/28/24 22:00 01/28/24 21:55 8.6 MG Lactulose 30 ml BIDPRN PRN PO 01/28/24 11:45 Examination: GENERAL:Abnormal, HEENT:Abnormal, LUNGS:Abnormal, CVS:Abnormal, ABDOMEN:Abnormal laboratory and microbiology Laboratory Tests 01/28/24 05:32 Test 01/28/24 05:32 Range/Units Serum Glucose 103 74-106 mg/dL Problem List/Assessment/Plan Problem List/Assessment/Plan kidney stone morbid obesity cad s/p pci htn hl fu echo fu surgical plan Plan discussed with: Patient Date of Service: Jan 29, 2024 Billing Provider: SOHAM THORPE MD Common Visit Codes: NOT BILLABLE SOHAM THORPE MD Jan 29, 2024 08:44
[2024-01-29] MEDS: ACETAMINOPHEN 325 MG TAB PO PRN (09:07)
--- NOTE | 2024-01-29 12:38 | DVHPN2 ---
Reviewed: Care Plan, H&P, Labs, Medications, Previous Orders, Radiology Changes from previous H/P or p: No Changes Objective Vitals Vital Signs Date Time Temp Pulse Resp B/P (MAP) Pulse Ox O2 Delivery O2 Flow Rate FiO2 01/29/24 09:08 117/64 01/29/24 09:08 89 01/29/24 09:00 97.8 14 95 97.8 01/29/24 08:00 Room Air* 0 21 Intake/Output Intake and Output 01/29/24 07:00 Intake Total 640 ml Balance 640 ml Intake Oral 640 ml # Voids 5 # Bowel Movements 1 Medications Current Medications Medications Dose Ordered Sig/Garrett Route Start Time Stop Time Status Last Admin Dose Admin Metoprolol Tartrate 25 mg BID PO 01/27/24 10:00 01/29/24 09:08 25 MG Furosemide 40 mg DAILY PO 01/27/24 10:00 01/29/24 09:08 40 MG Atorvastatin Calcium 40 mg HS PO 01/27/24 22:00 01/28/24 21:55 40 MG Tamsulosin HCl 0.4 mg QPM PO 01/27/24 18:00 01/28/24 18:22 0.4 MG Quetiapine Fumarate 25 mg BID PO 01/27/24 10:00 01/29/24 09:07 25 MG Acetaminophen/ Hydrocodone Bitart 1 tab Q4HP PRN PO 01/27/24 04:15 01/27/24 09:06 1 TAB Ondansetron HCl 4 mg Q4HP PRN IV 01/27/24 04:15 Acetaminophen 650 mg Q6HP PRN PO 01/27/24 04:15 01/29/24 09:07 650 MG Ceftriaxone Sodium 50 ml @ 100 mls/hr DAILY@09 IV 01/27/24 09:00 01/29/24 09:07 100 MLS/HR Fluoxetine HCl 40 mg QAM PO 01/29/24 07:00 01/29/24 06:05 40 MG Sennosides 8.6 mg HS PO 01/28/24 22:00 01/28/24 21:55 8.6 MG Lactulose 30 ml BIDPRN PRN PO 01/28/24 11:45 Laboratory Results Laboratory Tests 01/28/24 05:32 Urinalysis Test 01/27/24 16:12 Urine Color Yellow (Yellow) Urine Clarity Clear (Clear) Urine pH 6.0 (5.0-9.0) Urine Specific [place] 1.019 (1.001-1.035) Urine Protein 3+ (Negative) H Urine Ketones Negative (Negative) Urine Blood Negative /uL (Negative) Urine Nitrite Negative (Negative) Urine Bilirubin Negative (Negative) Urine Urobilinogen Normal mg/dL (Negative) Urine Leukocyte Esterase Negative /uL (Negative) Urine RBC 2 /hpf (0 - 3) Urine WBC 1 /hpf (0 - 3) Urine Squamous Epithelial Cells Few /hpf (<5) Urine Bacteria Few /hpf (None Seen) H Urine Mucus Few (None Seen) Urine Glucose 2+ mg/dL (Normal) H Labs and/or images reviewed: Labs reviewed by me, Image(s) reviewed by me Assessment/Plan Assessment/Plan Acute right flank pain 6 mm obstructing right distal ureteral stone with moderate right hydronephrosis: Consult for Urology appreciated patient went to the operating room for right nephrostomy tube placement, patient tells me that the table was narrow uncontrollable and refused the placement nephrostomy tube. Consequences and complications including increasing hydronephrosis and ultimate kidney failure explained to the patient and he verbalized understanding. We will request Urology Dr. Mae for can put right ureteral stent Hypertension: Metoprolol Hypercholesterolemia: Lipitor BPH: Flomax Charcot foot right foot Decubitus ulcer lateral right ankle present on admission: Wound consult Depression: Seroquel, Prozac Chronic constipation: Lactulose senekot History of coronary artery disease status post stents 2012 Acute on chronic congestive heart failure: Lasix echocardiogram cardiology consult Type 2 Diabetes: insulin sliding scale Possible history of stroke in the past Bed-bound for the last three years Gross obesity BMI of 50 Cirrhosis of liver History of IVC filter Patient came from [facility] assisted living facility Time spent 50 minutes Advanced care planning 20 minutes Patient is full code Plan discussed with: Patient Date of Service: Jan 29, 2024 Billing Provider: TONEY GARDNER MD Common Visit Codes: [id number] INP/OBS CARE(HIGH) TONEY GARDNER MD Jan 29, 2024 12:38
--- NOTE | 2024-01-29 14:54 | DVHINCON2 ---
Date of service: Jan 29, [address] Jensen Reason for Consultation obstructive uropathy History of Present Illness History Source: RN Notes, MD Notes Exam Limitations: No limitations HPI 68-year-old male brought in by EMS. PMH CAD, cirrhosis, BPH s/p TURP, IVC filter. Patient brought in from skilled facility. Patient complaining of dysuria and strong odor in his urine for the last two days. States he had been having worsening back pain today. Reports a history of urinary tract infections. pt had refused turner and nephrostomy placement. Home Meds Reported Medications Warfarin Sodium (Warfarin Sodium) 6 Mg Tab, PO UD, MG 01/28/24 Ascorbic Acid (Gnp Vitamin C W/[place]ima Hips) 500 Mg Tab, 500 MG PO BID, TAB 01/28/24 Aspirin (Aspirin 81 Low Dose) 81 Mg Chw, 81 MG PO DAILY, TAB.CHEW 01/28/24 Quetiapine Fumerate (QUETIAPINE FUMARATE) 300 Mg Tab, 300 MG PO HS PRN for FOR INSOMNIA, MG 01/28/24 Folic Acid (Folic Acid) 1 Mg Tab, 1 MG PO DAILY, MG 01/28/24 Quetiapine Fumerate (QUETIAPINE FUMARATE) 25 Mg Tab, 25 MG PO BID, TAB 01/28/24 Tamsulosin Hcl (Tamsulosin Hcl) 0.4 Mg Cap, 0.4 MG PO QPM, MG 01/28/24 Famotidine (Famotidine) 20 Mg Tab, 20 MG PO BID, MG 01/28/24 Atorvastatin Calcium (ATORVASTATIN CALCIUM) 40 Mg Tab, 40 MG PO QPM, TAB 01/28/24 Furosemide (Furosemide) 40 Mg Tab, 40 MG PO DAILY 01/28/24 Metoprolol Tartrate (Lopressor) 25 Mg Tb, 25 MG PO Q12HR, TAB 01/28/24 Past Medical History Cardiac: CAD Patient Family History: FH: chronic renal disease G8 FATHER Review of Systems Genitourinary: Frequency, Pain H&P Exam Vital Signs Vital Signs Date Time Temp Pulse Resp B/P (MAP) Pulse Ox O2 Delivery O2 Flow Rate FiO2 01/29/24 13:00 98.5 78 18 104/69 (81) 98 98.5 01/29/24 08:00 Room Air* 0 21 General Appeara: Well developed, Well nourished, Normal Appearance, Obese Labs/Xrays [facility] [id number] [facility] [address] Ph: [phone] DIAGNOSTIC IMAGING Diagnostic Imaging Report : [id number] Signed PATIENT: EVELINE LOUISE ACCT: [id number] UNIT: [id number] : 1955 LOC: ER ROOM / BED: / AGE / SEX: 68 / M ADM STATUS: REG ER SERVICE 30 ORDERING PHYSICIAN: SHARRON MCCLELLAND PROCEDURE(s): ABPL - CT AB PEL WO CON-NO ORAL OR IV REASON: abd pain ORDER NUMBER(s): [id number], ACCESSION NUMBER(s): [id number] CLINICAL HISTORY: abd pain TECHNIQUE: CT of the abdomen and pelvis was performed without intravenous contrast. This exam was performed according to our departmental dose optimization program. Up-to-date CT equipment and radiation dose reduction techniques are utilized as appropriate. WID: COMPARISON: None FINDINGS: Lower Thorax: Linear bibasilar scarring or atelectasis. Normal-sized heart. 3- vessel calcified coronary artery disease, up to severe in the left anterior descending artery. Liver and Biliary system: Nodular contour of the liver. The gallbladder is normal caliber. No definite hepatic lesion. Small portosystemic collateral vessels. No biliary ductal dilatation Spleen: Mild splenomegaly. Adrenal Glands and Kidneys: Normal adrenal glands. There is no left hydronephrosis. Tiny nonobstructing left upper pole renal calculus. there is a 6 mm calculus in the distal right ureter causing [id number] upstream right hydroureteronephrosis. Small bilateral kidneys. Pancreas and Retroperitoneum: Unremarkable. Aorta and Major Vessels: Mild calcified plaque in the aortoiliac vessels. Mild focal ectasia of the infrarenal abdominal aorta. There is an IVC filter in place terminating below the level of the renal veins. The legs of the IVC filter extend beyond the confines of the IVC Bowel, Mesentery and Peritoneal space: The right abdomen is not entirely in cluded in the field of view. Normal caliber small and large bowel. There is no free air or loculated fluid collection Pelvis: Moderate distention of the urinary bladder. There is a diverticulum in the anterior dome of the liver. Mild bladder wall trabeculation. TURP defect in the prostate gland. There is no pelvic lymphadenopathy. Abdominal wall and Osseous Structures: Moderate fat containing bilateral inguinal hernias. Small fat containing umbilical hernia there is bony demineralization. 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 IMPRESSION: 1. There is a 6 mm calculus in the distal right ureter with [id number] right hydroureteronephrosis . 2. Tiny nonobstructing left upper pole renal calculus . 3. Moderately distended urinary bladder containing diverticulum in the anterior dome and bladder wall trabeculation which could be due to chronic bladder outlet obstruction or neurogenic bladder. Of note there is a TURP defect in the pro state gland 4. Cirrhosis and portal hypertension with portosystemic collateral vessels and splenomegaly. 5. IVC filter terminating below the level of the renal veins; the legs of the IVC filter extend beyond the confines of the IVC. 6. 3-vessel calcified coronary artery disease up to severe in the left anterior descending artery. ATED BY: MOHAN KOO MD DICTATED DATE/TIME: 01/27/2435 SIGNED BY: MOHAN KOO MD SIGNED DATE/TIME: 01/27/2435 CC: Labs Test 01/28/24 05:32 01/27/24 17:50 01/27/24 16:12 01/27/24 06:35 Range/Units White Blood Count 5.6 4.4-10.8 10^3/uL Red Blood Count 3.84 L 4.5-5.90 10^6/uL Hemoglobin 12.8 L 13.5-17.5 g/dL Hematocrit 37.6 L 41.0-53.0 % Mean Corpuscular Volume 97.7 80.0-100.0 fL Mean Corpuscular Hemoglobin 33.2 H 28.0-32.0 pg Mean Corpuscular Hemoglobin Concent 34.0 32.0-36.0 g/dL Red Cell Distribution Width 14.4 H 11.8-14.3 % Platelet Count 162 140-450 10^3/uL Mean Platelet Volume 7.6 6.9-10.8 fL Neutrophils (%) (Auto) 62.1 37.0-80.0 % Lymphocytes (%) (Auto) 23.7 10.0-50.0 % Monocytes (%) (Auto) 8.5 0.0-12.0 % Eosinophils (%) (Auto) 5.6 0.0-7.0 % Basophils (%) (Auto) 0.1 0.0-2.0 % Neutrophils # (Auto) 3.5 1.6-8.6 10 ^3/uL Lymphocytes # (Auto) 1.3 0.4-5.4 10 ^3/uL Monocytes # (Auto) 0.5 0-1.3 10 ^3/uL Eosinophils # (Auto) 0.3 0-0.8 10 ^3/uL Basophils # (Auto) 0 0-0.2 10 ^3/uL Nucleated Red Blood Cells 0.1 % Sodium Level 137 136-145 mmol/L Potassium Level 3.9 3.5-5.1 mmol/L Chloride Level 104 98-107 mmol/L Carbon Dioxide Level 25 20-31 mmol/L Anion Gap 8 5-15 Blood Urea Nitrogen 21 9-23 mg/dL Creatinine 2.06 H 0.700-1.30 mg/dL Glomerular Filtration Rate Calc 35 >90 mL/min BUN/Creatinine Ratio 10.2 10.0-20.0 Serum Glucose 103 74-106 mg/dL Calcium Level 9.5 8.7-10.4 mg/dL Prothrombin Time 12.0 H 9.3-11.8 sec Prothrombin Time INR 1.14 0.9-1.15 Urine Color Yellow Yellow Urine Clarity Clear Clear Urine pH 6.0 5.0-9.0 Urine Specific [place] 1.019 1.001-1.035 Urine Protein 3+ H Negative Urine Ketones Negative Negative Urine Blood Negative Negative /uL Urine Nitrite Negative Negative Urine Bilirubin Negative Negative Urine Urobilinogen Normal Negative mg/dL Urine Leukocyte Esterase Negative Negative /uL Urine RBC 2 0 - 3 /hpf Urine WBC 1 0 - 3 /hpf Urine Squamous Epithelial Cells Few <5 /hpf Urine Bacteria Few H None Seen /hpf Urine Mucus Few None Seen Urine Glucose 2+ H Normal mg/dL Activated Partial Thromboplast Time 29.6 24.5-34.5 SEC Test 01/26/24 22:00 Range/Units Lactic Acid Level 1.7 0.4-2.0 mmol/L Total Bilirubin 0.5 0.2-1.0 mg/dL Aspartate Amino Transferase (AST) 42 H 13-40 U/L Alanine Aminotransferase (ALT) 20 7-40 U/L Alkaline Phosphatase 92 46-116 U/L Total Protein 8.0 5.7-8.2 g/dL Albumin 4.0 3.2-4.8 g/dL Assessment/Plan Problem List: (1) BPH (benign prostatic hyperplasia) (2) Retention of urine (3) Urinary tract infection (4) Kidney stone (5) Hydroureteronephrosis (6) FH: chronic renal disease Plan renal US continue expulsive measures treat UTI Plan discussed with: Other RENEA JACOBO NP Jan 29, 2024 14:54
--- NOTE | 2024-01-29 16:39 | DVHSR ---
APPROVED REPORT EXAM: LIMITED Two-dimensional and M-mode echocardiogram with Doppler and color Doppler. Blood Pressure: 117/64 mmHg INDICATION Pre-Op CAD RISK FACTORS Obesity: Height: 6' 3", Weight: 392 DIMENSIONS LVDd3.6 (3.8-5.7cm)LA (2D)3.6 (1.9-4.0cm)Aortic Root (2.0-3.7cm) LVDs2.4 (2.5-4.0cm)LA (MM) (1.9-4.0cm)Aortic Cusp Exc (1.5-2.0cm) EF (%) 60.0 (55-70%)Rt. Atrium (1.9-4.0cm)Asc. Aorta cm IVSd0.9 (0.7-1.1cm)RV (D) (1.8-2.4cm) PWd0.8 (0.7-1.1cm) Mitral Valve MitralMitral Stenosis E wave0.50m/sMV Mean GR.mmHg A wave0.70m/sMV Peak GR.mmHg E/A ratio0.72D MVAcm2 Aortic Valve Aortic ValveAortic Stenosis V10.60m/Frankie Mean GR.1mmHg V20.80m/Frankie Peak GR.3mmHg Other Information Quality : Technically LimitedRhythm : Technically limited study due to body habitus. Conclusion non diagnostic study severe obesity, very poor image quality lvef > 40% abnomrmal septal motion no valves noted no RV seen well
--- NOTE | 2024-01-29 17:00 | DVH ---
INDICATION: Abdominal pain. TECHNIQUE: Multiple real-time sonographic images of the kidneys and bladder were obtained. COMPARISON: None FINDINGS: RIGHT kidney was not clearly visualized. LEFT kidney measures 11.8 cm in length. No hydronephrosis. No large intraluminal masses are seen in the bladder. Distended bladder with volume measuring 1373 mL. IMPRESSION: 1. No left-sided hydronephrosis. 2. The right kidney was not clearly visualized, likely due to body habitus. 3. Markedly distended urinary bladder with a volume of 1373 mL. Correlate for urinary retention.
[2024-01-29] MEDS: LACTULOSE 20Gm/30ML SOLN PO PRN (17:06)
[2024-01-30] VITALS (7 sets, daily range): BP systolic 103–126; BP diastolic 56–91; PULSE 52–84; RESP 15–20; TEMP 97.5–98; O2SAT 92–96
[2024-01-30 08:06] LABS: PSA Free 0.03 ng/mL; Prostate Specific Antigen <0.1 ng/mL (0.0-4.0)
--- NOTE | 2024-01-30 11:07 | DVHPN2 ---
Reviewed: Care Plan, H&P, Labs, Medications, Previous Orders, Radiology Changes from previous H/P or p: No Changes Objective Vitals Vital Signs Date Time Temp Pulse Resp B/P (MAP) Pulse Ox O2 Delivery O2 Flow Rate FiO2 01/30/24 09:00 98.0 84 17 126/91 (103) 93 98.0 01/30/24 08:00 Room Air* 0 21 Intake/Output Intake and Output 01/30/24 07:00 Intake Total 1600 ml Output Total 450 ml Balance 1150 ml Intake Oral 1600 ml Output Urine Total 450 ml # Voids 4 Medications Current Medications Medications Dose Ordered Sig/Garrett Route Start Time Stop Time Status Last Admin Dose Admin Metoprolol Tartrate 25 mg BID PO 01/27/24 10:00 01/30/24 08:40 25 MG Furosemide 40 mg DAILY PO 01/27/24 10:00 01/30/24 08:41 40 MG Atorvastatin Calcium 40 mg HS PO 01/27/24 22:00 01/29/24 22:00 40 MG Tamsulosin HCl 0.4 mg QPM PO 01/27/24 18:00 01/29/24 17:06 0.4 MG Quetiapine Fumarate 25 mg BID PO 01/27/24 10:00 01/30/24 08:38 25 MG Acetaminophen/ Hydrocodone Bitart 1 tab Q4HP PRN PO 01/27/24 04:15 01/29/24 22:00 1 TAB Ondansetron HCl 4 mg Q4HP PRN IV 01/27/24 04:15 Acetaminophen 650 mg Q6HP PRN PO 01/27/24 04:15 01/29/24 09:07 650 MG Ceftriaxone Sodium 50 ml @ 100 mls/hr DAILY@09 IV 01/27/24 09:00 01/30/24 08:38 100 MLS/HR Fluoxetine HCl 40 mg QAM PO 01/29/24 07:00 01/30/24 05:51 40 MG Sennosides 8.6 mg HS PO 01/28/24 22:00 01/28/24 21:55 8.6 MG Lactulose 30 ml BIDPRN PRN PO 01/28/24 11:45 01/29/24 17:06 30 ML Laboratory Results Laboratory Tests 01/28/24 05:32 Urinalysis Test 01/27/24 16:12 Urine Color Yellow (Yellow) Urine Clarity Clear (Clear) Urine pH 6.0 (5.0-9.0) Urine Specific [place] 1.019 (1.001-1.035) Urine Protein 3+ (Negative) H Urine Ketones Negative (Negative) Urine Blood Negative /uL (Negative) Urine Nitrite Negative (Negative) Urine Bilirubin Negative (Negative) Urine Urobilinogen Normal mg/dL (Negative) Urine Leukocyte Esterase Negative /uL (Negative) Urine RBC 2 /hpf (0 - 3) Urine WBC 1 /hpf (0 - 3) Urine Squamous Epithelial Cells Few /hpf (<5) Urine Bacteria Few /hpf (None Seen) H Urine Mucus Few (None Seen) Urine Glucose 2+ mg/dL (Normal) H Labs and/or images reviewed: Labs reviewed by me, Image(s) reviewed by me Assessment/Plan Assessment/Plan Acute right flank pain 6 mm obstructing right distal ureteral stone with moderate right hydronephrosis: Consult for Urology appreciated patient went to the operating room for right nephrostomy tube placement, patient tells me that the table was narrow uncontrollable and refused the placement nephrostomy tube. Consequences and complications including increasing hydronephrosis and ultimate kidney failure explained to the patient and he verbalized understanding. Patient still does not want nephrostomy tube placed. RN at bedside We will request Urology Dr. Mae for can put right ureteral stent Hypertension: Metoprolol Hypercholesterolemia: Lipitor BPH: Flomax Charcot foot right foot Decubitus ulcer lateral right ankle present on admission: Wound consult Depression: Seroquel, Prozac Chronic constipation: Lactulose senekot History of coronary artery disease status post stents 2012 Acute on chronic congestive heart failure: Lasix echocardiogram cardiology consult Type 2 Diabetes: insulin sliding scale Possible history of stroke in the past Bed-bound for the last three years Gross obesity BMI of 50 Cirrhosis of liver History of IVC filter [facility] Time spent 50 minutes Advanced care planning 20 minutes Patient is full code Plan discussed with: Patient My Orders Orders - TONEY GARDNER MD Procedure Category Date Status Time * Urology Consult CONS 01/29/24 Transmitted 12:38 Cleanse Wound With ANA 01/29/24 In Process Wound Clean 12:30 * Dietary Consult CONS 01/29/24 Transmitted 16:10 Date of Service: Jan 30, 2024 Billing Provider: TONEY AGRDNER MD Common Visit Codes: [id number] INP/OBS CARE(HIGH) TONEY GARDNER MD Jan 30, 2024 11:07
--- NOTE | 2024-01-30 11:17 | DVHPN2 ---
Progress Note Date Seen: Jan 30, 2024 Medical Necessity Reason Pt with a Central, PICC or Fol: No Subjective Other Systems: refused neph tube Objective vital signs Vital Sign Date Time Temp Pulse Resp B/P (MAP) Pulse Ox O2 Delivery O2 Flow Rate FiO2 01/30/24 09:00 98.0 84 17 126/91 (103) 93 98.0 01/30/24 08:00 Room Air* 0 21 Total Intake and Output 01/29/24 01/29/24 01/30/24 15:00 23:00 07:00 Intake Total 800 ml 800 ml Output Total 450 ml Balance 350 ml 800 ml medications Current Medications Medications Dose Ordered Sig/Garrett Route Start Time Stop Time Status Last Admin Dose Admin Metoprolol Tartrate 25 mg BID PO 01/27/24 10:00 01/30/24 08:40 25 MG Furosemide 40 mg DAILY PO 01/27/24 10:00 01/30/24 08:41 40 MG Atorvastatin Calcium 40 mg HS PO 01/27/24 22:00 01/29/24 22:00 40 MG Tamsulosin HCl 0.4 mg QPM PO 01/27/24 18:00 01/29/24 17:06 0.4 MG Quetiapine Fumarate 25 mg BID PO 01/27/24 10:00 01/30/24 08:38 25 MG Acetaminophen/ Hydrocodone Bitart 1 tab Q4HP PRN PO 01/27/24 04:15 01/29/24 22:00 1 TAB Ondansetron HCl 4 mg Q4HP PRN IV 01/27/24 04:15 Acetaminophen 650 mg Q6HP PRN PO 01/27/24 04:15 01/29/24 09:07 650 MG Ceftriaxone Sodium 50 ml @ 100 mls/hr DAILY@09 IV 01/27/24 09:00 01/30/24 08:38 100 MLS/HR Fluoxetine HCl 40 mg QAM PO 01/29/24 07:00 01/30/24 05:51 40 MG Sennosides 8.6 mg HS PO 01/28/24 22:00 01/28/24 21:55 8.6 MG Lactulose 30 ml BIDPRN PRN PO 01/28/24 11:45 01/29/24 17:06 30 ML Examination: GENERAL:Abnormal, HEENT:Abnormal, LUNGS:Abnormal, CVS:Abnormal, ABDOMEN:Abnormal laboratory and microbiology Laboratory Tests 01/28/24 05:32 Test 01/28/24 05:32 Range/Units Serum Glucose 103 74-106 mg/dL Problem List/Assessment/Plan Problem List/Assessment/Plan kidney stone morbid obesity cad s/p pci htn hl fu echo --limited study, likely low normal lvef asa, statin fu surgical plan Plan discussed with: Patient Dietary Evaluation Review Comments: 1. Continue current diet 2. Consider adding Andres BID (180kcal, 5g pro) for wound healing Expected Outcomes/Goals: 1. Pt will consume >75% of estimated needs within 3-5 days Date of Service: Jan 30, 2024 Billing Provider: SOHAM THORPE MD Common Visit Codes: NOT BILLABLE SOHAM THORPE MD Jan 30, 2024 11:17
[2024-01-30] MEDS: HYDROcodone-ACET 10/325MG TAB PO PRN (14:14)
[2024-01-31] VITALS (7 sets, daily range): BP systolic 101–126; BP diastolic 50–108; PULSE 50–110; RESP 16–21; TEMP 97.7–98.4; O2SAT 92–97
--- NOTE | 2024-01-31 09:39 | DVHPN2 ---
Progress Note - Dictate Date Seen: Jan 31, 2024 Medical Necessity Reason Pt with a Central, PICC or Fol: No vital signs Vital Sign Date Time Temp Pulse Resp B/P (MAP) Pulse Ox O2 Delivery O2 Flow Rate FiO2 01/31/24 09:16 97.7 110 21 101/64 (76) 93 97.7 01/31/24 08:00 Room Air* 0 21 Total Intake and Output 01/30/24 01/30/24 01/31/24 15:00 23:00 07:00 Intake Total 50 ml 1375 ml 495 ml Output Total 1425 ml 300 ml Balance 50 ml -50 ml 195 ml medications Current Medications Medications Dose Ordered Sig/Garrett Route Start Time Stop Time Status Last Admin Dose Admin Metoprolol Tartrate 25 mg BID PO 01/27/24 10:00 01/30/24 08:40 25 MG Furosemide 40 mg DAILY PO 01/27/24 10:00 01/30/24 08:41 40 MG Atorvastatin Calcium 40 mg HS PO 01/27/24 22:00 01/30/24 22:42 40 MG Tamsulosin HCl 0.4 mg QPM PO 01/27/24 18:00 01/30/24 17:04 0.4 MG Quetiapine Fumarate 25 mg BID PO 01/27/24 10:00 01/30/24 22:41 25 MG Ondansetron HCl 4 mg Q4HP PRN IV 01/27/24 04:15 Acetaminophen 650 mg Q6HP PRN PO 01/27/24 04:15 01/29/24 09:07 650 MG Ceftriaxone Sodium 50 ml @ 100 mls/hr DAILY@09 IV 01/27/24 09:00 01/30/24 08:38 100 MLS/HR Fluoxetine HCl 40 mg QAM PO 01/29/24 07:00 01/31/24 06:29 40 MG Sennosides 8.6 mg HS PO 01/28/24 22:00 01/30/24 22:41 8.6 MG Lactulose 30 ml BIDPRN PRN PO 01/28/24 11:45 01/29/24 17:06 30 ML Acetaminophen/ Hydrocodone Bitart 1 tab Q6HP PRN PO 01/30/24 13:30 01/31/24 05:20 1 TAB laboratory and microbiology Laboratory Tests 01/28/24 05:32 Test 01/28/24 05:32 Range/Units Serum Glucose 103 74-106 mg/dL Assessment/Plan bladder scan. if PVR > 300mls place turner to gravity. outpt cysto and Urodynamics Problems(with codes): (1) Urinary tract infection (2) Kidney stone (3) Hydroureteronephrosis (4) Retention of urine (5) BPH (benign prostatic hyperplasia) Prognosis fair Dietary Evaluation Review Comments: 1. Continue current diet 2. Consider adding Andres BID (180kcal, 5g pro) for wound healing Expected Outcomes/Goals: 1. Pt will consume >75% of estimated needs within 3-5 days Plan discussed with: Patient Total Time (mins): 15 RENEA JACOBO NP Jan 31, 2024 09:39
--- NOTE | 2024-01-31 17:59 | DVHPN2 ---
Progress Note Date Seen: Jan 31, 2024 Medical Necessity Reason Pt with a Central, PICC or Fol: No Subjective Patient reports: Feels better Objective vital signs Vital Sign Date Time Temp Pulse Resp B/P (MAP) Pulse Ox O2 Delivery O2 Flow Rate FiO2 01/31/24 17:00 97.8 78 19 105/66 (79) 94 97.8 01/31/24 08:00 Room Air* 0 21 Total Intake and Output 01/30/24 01/30/24 01/31/24 15:00 23:00 07:00 Intake Total 50 ml 1375 ml 495 ml Output Total 1425 ml 300 ml Balance 50 ml -50 ml 195 ml medications Current Medications Medications Dose Ordered Sig/Garrett Route Start Time Stop Time Status Last Admin Dose Admin Metoprolol Tartrate 25 mg BID PO 01/27/24 10:00 01/31/24 09:45 25 MG Furosemide 40 mg DAILY PO 01/27/24 10:00 01/31/24 09:44 40 MG Atorvastatin Calcium 40 mg HS PO 01/27/24 22:00 01/30/24 22:42 40 MG Tamsulosin HCl 0.4 mg QPM PO 01/27/24 18:00 01/31/24 17:17 0.4 MG Quetiapine Fumarate 25 mg BID PO 01/27/24 10:00 01/31/24 09:45 25 MG Ondansetron HCl 4 mg Q4HP PRN IV 01/27/24 04:15 Acetaminophen 650 mg Q6HP PRN PO 01/27/24 04:15 01/31/24 13:46 650 MG Ceftriaxone Sodium 50 ml @ 100 mls/hr DAILY@09 IV 01/27/24 09:00 01/31/24 09:45 100 MLS/HR Fluoxetine HCl 40 mg QAM PO 01/29/24 07:00 01/31/24 06:29 40 MG Sennosides 8.6 mg HS PO 01/28/24 22:00 01/30/24 22:41 8.6 MG Lactulose 30 ml BIDPRN PRN PO 01/28/24 11:45 01/29/24 17:06 30 ML Acetaminophen/ Hydrocodone Bitart 1 tab Q6HP PRN PO 01/30/24 13:30 01/31/24 05:20 1 TAB Examination: GENERAL:Abnormal, HEENT:Abnormal, LUNGS:Abnormal, CVS:Abnormal, ABDOMEN:Abnormal laboratory and microbiology Laboratory Tests 01/28/24 05:32 Test 01/28/24 05:32 Range/Units Serum Glucose 103 74-106 mg/dL Problem List/Assessment/Plan Problem List/Assessment/Plan kidney stone morbid obesity cad s/p pci htn hl fu echo --limited study, likely low normal lvef asa, statin fu surgical plan Plan discussed with: Patient Dietary Evaluation Review Comments: 1. Continue current diet 2. Consider adding Andres BID (180kcal, 5g pro) for wound healing Expected Outcomes/Goals: 1. Pt will consume >75% of estimated needs within 3-5 days Date of Service: Jan 31, 2024 Billing Provider: SOHAM THORPE MD Common Visit Codes: NOT BILLABLE SOHAM THORPE MD Jan 31, 2024 17:59
[2024-01-31 19:27] LABS: COVID19 ANTIGEN SOFIA FIA NEGATIVE (NEGATIVE)
[2024-02-01 01:00] VITALS: BP 103/64; PULSE 78; RESP 16; TEMP 98.5; O2SAT 94
[2024-02-01 05:00] VITALS: BP 109/61; PULSE 80; RESP 16; TEMP 98.5; O2SAT 97
[2024-02-01 09:00] VITALS: BP 116/66; PULSE 80; RESP 17; TEMP 96.9; O2SAT 93
--- NOTE | 2024-02-01 11:11 | DVHPN2 ---
Reviewed: Care Plan, H&P, Labs, Medications, Previous Orders, Radiology Changes from previous H/P or p: No Changes Objective Vitals Vital Signs Date Time Temp Pulse Resp B/P (MAP) Pulse Ox O2 Delivery O2 Flow Rate FiO2 02/01/24 09:42 80 116/66 02/01/24 09:00 96.9 17 93 96.9 02/01/24 08:00 Room Air* 0 21 Intake/Output Intake and Output 02/01/24 07:00 Intake Total 2000 ml Output Total 1700 ml Balance 300 ml Intake Oral 1950 ml IV Total 50 ml Output Urine Total 1700 ml Medications Current Medications Medications Dose Ordered Sig/Garrett Route Start Time Stop Time Status Last Admin Dose Admin Metoprolol Tartrate 25 mg BID PO 01/27/24 10:00 02/01/24 09:42 25 MG Furosemide 40 mg DAILY PO 01/27/24 10:00 01/31/24 09:44 40 MG Atorvastatin Calcium 40 mg HS PO 01/27/24 22:00 01/31/24 22:03 40 MG Tamsulosin HCl 0.4 mg QPM PO 01/27/24 18:00 01/31/24 17:17 0.4 MG Quetiapine Fumarate 25 mg BID PO 01/27/24 10:00 02/01/24 09:42 25 MG Ondansetron HCl 4 mg Q4HP PRN IV 01/27/24 04:15 Acetaminophen 650 mg Q6HP PRN PO 01/27/24 04:15 02/01/24 06:32 650 MG Ceftriaxone Sodium 50 ml @ 100 mls/hr DAILY@09 IV 01/27/24 09:00 02/01/24 09:41 100 MLS/HR Fluoxetine HCl 40 mg QAM PO 01/29/24 07:00 02/01/24 06:31 40 MG Sennosides 8.6 mg HS PO 01/28/24 22:00 01/31/24 22:04 8.6 MG Lactulose 30 ml BIDPRN PRN PO 01/28/24 11:45 02/01/24 09:51 30 ML Acetaminophen/ Hydrocodone Bitart 1 tab Q6HP PRN PO 01/30/24 13:30 01/31/24 22:04 1 TAB Laboratory Results Laboratory Tests 01/28/24 05:32 Urinalysis Test 01/27/24 16:12 Urine Color Yellow (Yellow) Urine Clarity Clear (Clear) Urine pH 6.0 (5.0-9.0) Urine Specific [place] 1.019 (1.001-1.035) Urine Protein 3+ (Negative) H Urine Ketones Negative (Negative) Urine Blood Negative /uL (Negative) Urine Nitrite Negative (Negative) Urine Bilirubin Negative (Negative) Urine Urobilinogen Normal mg/dL (Negative) Urine Leukocyte Esterase Negative /uL (Negative) Urine RBC 2 /hpf (0 - 3) Urine WBC 1 /hpf (0 - 3) Urine Squamous Epithelial Cells Few /hpf (<5) Urine Bacteria Few /hpf (None Seen) H Urine Mucus Few (None Seen) Urine Glucose 2+ mg/dL (Normal) H Labs and/or images reviewed: Labs reviewed by me, Image(s) reviewed by me Assessment/Plan Assessment/Plan Acute right flank pain 6 mm obstructing right distal ureteral stone with moderate right hydronephrosis: Consult for Urology appreciated patient went to the operating room for right nephrostomy tube placement, patient tells me that the table was narrow uncontrollable and refused the placement nephrostomy tube. Consequences and complications including increasing hydronephrosis and ultimate kidney failure explained to the patient and he verbalized understanding. Patient still does not want nephrostomy tube placed. RN at bedside We will request Urology Dr. Mae for can put right ureteral stent Hypertension: Metoprolol Hypercholesterolemia: Lipitor BPH: Flomax Charcot foot right foot Decubitus ulcer lateral right ankle present on admission: Wound consult Depression: Seroquel, Prozac Chronic constipation: Lactulose senekot History of coronary artery disease status post stents 2012 Acute on chronic congestive heart failure: Lasix echocardiogram cardiology consult Type 2 Diabetes: insulin sliding scale Possible history of stroke in the past Bed-bound for the last three years Gross obesity BMI of 50 Cirrhosis of liver History of IVC filter [facility]/2024 Per social work assistant Zahra notes patient's friend and POBogdan Garsia would like patient to go to [place]. Plan discussed with: Patient My Orders Orders - TONEY GARDNER MD Procedure Category Date Status Time Discharge DISCHARGE 01/31/24 Transmitted 13:44 * [employer] CONS 01/31/24 Transmitted Consult Pt Request For Service PT 01/31/24 Logged 13:47 Date of Service: Feb 01, 2024 Billing Provider: TONEY GARDNER MD Common Visit Codes: [id number] INP/OBS CARE(HIGH) TONEY GARDNER MD Feb 01, 2024 11:11
[2024-02-01 13:00] VITALS: BP 124/70; PULSE 77; RESP 18; TEMP 98.4; O2SAT 96
[2024-02-01 14:01] VITALS: BP 120/66; PULSE 71; RESP 18; TEMP 98.1; O2SAT 97
--- NOTE | 2024-02-04 14:40 | ECG ---
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
== END 2024-02-01 16:05 | DRG 689 ==
LOC: ER 20:16 → EDBD 20:16 → OVERFLOW 01-27 04:09 → WEST WING 01-27 23:42
PROVIDERS: ADMIT Nurse Practitioner; ATTEND Family Medicine
DX: N13.6 Pyonephrosis (principal); I50.33 Acute on chronic diastolic (congestive) heart failure; D68.9 Coagulation defect, unspecified; I13.0 Hypertensive heart and chronic kidney disease with heart failure and stage 1 through stage 4 chronic kidney disease, or unspecified chronic kidney disease; N20.2 Calculus of kidney with calculus of ureter; Z68.43 Body mass index [BMI] 50.0-59.9, adult; N17.9 Acute kidney failure, unspecified; E11.22 Type 2 diabetes mellitus with diabetic chronic kidney disease; E11.610 Type 2 diabetes mellitus with diabetic neuropathic arthropathy; E78.00 Pure hypercholesterolemia, unspecified; F32.A Depression, unspecified; R33.8 Other retention of urine; N40.1 Benign prostatic hyperplasia with lower urinary tract symptoms; K59.09 Other constipation; E66.01 Morbid (severe) obesity due to excess calories; L89.519 Pressure ulcer of right ankle, unspecified stage; K74.60 Unspecified cirrhosis of liver; N18.9 Chronic kidney disease, unspecified; I25.10 Atherosclerotic heart disease of native coronary artery without angina pectoris; Z95.5 Presence of coronary angioplasty implant and graft; Z79.899 Other long term (current) drug therapy; Z95.828 Presence of other vascular implants and grafts; Z74.01 Bed confinement status; Z86.73 Personal history of transient ischemic attack (TIA), and cerebral infarction without residual deficits; Z90.79 Acquired absence of other genital organ(s); Z79.4 Long term (current) use of insulin
CPT/HCPCS: 36415; 74176; 76775; 80048; 80053; 81001; 83605; 84154; 85025; 85610; 85730; 87426; 93306; 97163; G0378; Q9967